=== PATIENT | male | born 2005 | race Caucasian/White ===

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

== ENCOUNTER 2025-02-15 08:35 | Emergency (ER) | payer SELFPAY ==
[~2025-02-15] VITALS: Ht 182.9 cm; Wt 91.0 kg
[~2025-02-15 08:35] MED LIST: AUGM875T28 PO
[2025-02-15] MEDS ORDERED: PRED20TA PO (12:21)
[2025-02-15] MEDS ORDERED: BREAMIS10 MC (12:21)
[2025-02-15] MEDS ORDERED: VENTAER INH (12:21)
[2025-02-15 12:23] VITALS: BP 132/79; TEMP 98; O2SAT 100
== END 2025-02-15 12:26 | disposition home or self-care (01) ==
LOC: M ED 08:35
DX: T59.891A Toxic effect of other specified gases, fumes and vapors, accidental (unintentional), initial encounter (principal)